=== PATIENT | male | born 1960 | race Hispanic/Latino ===

== ENCOUNTER 2020-06-15 13:58 | Inpatient (IN) | payer BC, SELFPAY ==
[~2020-06-15 13:58] MED LIST: Iopamidol 370 76% 100 ML VIAL ONE; Iopamidol 370 76% 50 ML VIAL FS ONE
[2020-06-15] MEDS ORDERED: Lidocaine 1% (PF) 30 ML VIAL ONE (14:10)
[2020-06-15 14:16] LABS: #Basophils 0.1 thou/uL (0.0-0.2); #Eosinphils 0.1 thou/uL (0.0-0.7); #Lymphocytes 2.6 thou/uL (1.20-3.40); #Monocytes 0.6 thou/uL (0.11-0.59); #Neutrophils 6.4 thou/uL (1.40-6.50); %Eosinophils 1.1 % (0.0-10.0); %Lymphocytes 26.5 % (21.0-51.0); %Monocytes 6.5 % (0.0-10.0); %Neutrophils 64.9 % (42.0-75.0); Hemoglobin 13.8 g/dL (14.0-18.0); Mean Corpuscular HGB CONC 34.7 g/dL (32.0-36.0); Mean Corpuscular Hemoglobin 31.6 pg (27.0-31.0); Mean Platelet Volume 6.9 fL (7.4-10.4); Platelet Count 267 thou/uL (130-400); RBC Distribution Width 12.3 % (11.5-14.5); Red Blood Cell (RBC) Count 4.37 mill/uL (4.70-6.10); White Blood Cell (WBC) Count 9.9 thou/uL (4.8-10.8)
[2020-06-15 14:22] LABS: Prothrombin Time 13.3 sec (12.0-14.7)
[2020-06-15 14:35] LABS: ALT (SGPT) 29 U/L (8-55); AST (SGOT) 20 U/L (5-34); Albumin 4.3 g/dL (3.4-4.8); Alkaline Phosphatase 50 U/L (40-110); Anion Gap 15 mmol/L (10-20); BUN (Urea Nitrogen) 18 mg/dL (8.4-25.7); Bilirubin, Total 0.6 mg/dL (0.2-1.2); Calc. Creatinine Clearance 0 mL/min (70-130); Calcium 8.9 mg/dL (7.8-10.44); Carbon Dioxide 24 mmol/L (23-31); Chloride 106 mmol/L (98-107); Globulin 2.7 g/dL (2.4-3.5); Glucose 154 mg/dL (80-115); Potassium 3.5 mmol/L (3.5-5.1); Sodium 141 mmol/L (136-145)
[2020-06-15] MEDS ORDERED: Fentanyl 100 MCG/2 ML VIAL ONE (14:43)
[2020-06-15] MEDS ORDERED: Heparin 10,000 UNITS/ 10 ML VIAL ONE ×2 (14:43→14:58)
[2020-06-15] MEDS ORDERED: Aggrastat 12.5 MG/250 ML 250 ML ONE (15:06)
[2020-06-15] MEDS ORDERED: Nitroglycerin 100MG/250ML BOT 250 ML ONE (15:06)
[2020-06-15 15:09] LABS: CKMB 3.9 ng/mL (0-6.6)
[2020-06-15] MEDS ORDERED: Norepinephrine 4 MG/4 ML VIAL ONE ×2 (15:11→15:19)
[2020-06-15] MEDS ORDERED: Clopidogrel Bisulfate 300 MG TAB ONE (15:20)
[2020-06-15] MEDS ORDERED: Ondansetron PF 4 MG/2 ML Vial ONE (15:42)
[2020-06-15] MEDS ORDERED: Furosemide 40 MG/4 ML VIAL ONE (16:23)
[2020-06-15 16:40] VITALS: BMI 27.4
[2020-06-15] MEDS ORDERED: Nitroglycerin 50 MG/250 ML BOT 250 ML ONE (16:43)
[2020-06-15] MEDS ORDERED: Nitroglycerin 50 MG/250 ML BOT 250 ML IVPB SCH (16:45)
[2020-06-15] MEDS ORDERED: TICAGRELOR 90 MG TABLET PO SCH (16:45)
[2020-06-15] MEDS ORDERED: Ondansetron PF 4 MG/2 ML Vial IVP SCH (16:45)
[2020-06-15] MEDS ORDERED: Nitroglycerin 2% Ointment 1 INCH/1 GM Packet TOP SCH (16:45)
[2020-06-15] MEDS ORDERED: Furosemide 20 MG/2 ML VIAL SLOW IVP SCH (16:45)
[2020-06-15] MEDS ORDERED: Promethazine HCl 25 MG/ML VIAL SLOW IVP SCH (16:45)
[2020-06-15] MEDS: Sodium Chloride 0.9% 1,000 ML IV SCH (16:52)
[2020-06-15] MEDS ORDERED: Ondansetron PF 4 MG/2 ML Vial IVP PRN (20:38)
[2020-06-15] MEDS ORDERED: Aggrastat 12.5 MG/250 ML 250 ML IVPB SCH (20:45)
[2020-06-15] MEDS ORDERED: Spironolactone 25 MG TAB PO SCH (21:00)
[2020-06-15] MEDS ORDERED: Potassium Chloride 20 MEQ/100 ML PREMIX BAG IVPB SCH (21:00)
[2020-06-15] MEDS ORDERED: Magnesium Sulfate 3 GM in Sodium Chloride 0.9% 100 ML IVPB SCH (21:00)
[2020-06-15] MEDS: Atorvastatin Calcium 40 MG TAB PO SCH (21:04)
[2020-06-15 21:31] LABS: Anion Gap 15 mmol/L (10-20); BUN (Urea Nitrogen) 19 mg/dL (8.4-25.7); Calc. Creatinine Clearance 105 mL/min (70-130); Calcium 8.6 mg/dL (7.8-10.44); Carbon Dioxide 22 mmol/L (23-31); Chloride 106 mmol/L (98-107); Glucose 148 mg/dL (80-115); Sodium 139 mmol/L (136-145)
[2020-06-15 21:43] LABS: CK (CPK) 5684 U/L (30-200)
[2020-06-15 22:38] LABS: CKMB 402.8 ng/mL (0-6.6)
[2020-06-15 23:50] LABS: Band 17 % (5-11); Hemoglobin 13.6 g/dL (14.0-18.0); Lymphocytes 4 % (21-51); MDiff Complete? YES; Mean Corpuscular HGB CONC 34.3 g/dL (32.0-36.0); Mean Corpuscular Hemoglobin 30.8 pg (27.0-31.0); Mean Corpuscular Volume 89.7 fL (78.0-98.0); Mean Platelet Volume 10.6 fL (7.4-10.4); Neutrophil 79 % (42-75); Platelet Count 7 thou/uL (130-400); Platelet Morphology Comment Appears Decreased; RBC Distribution Width 12.4 % (11.5-14.5); Red Blood Cell (RBC) Count 4.41 mill/uL (4.70-6.10); White Blood Cell (WBC) Count 14.3 thou/uL (4.8-10.8)
[2020-06-16] MEDS ORDERED: Potassium Chloride 20 MEQ in Premix Bag 1 BAG IVPB SCH (00:30)
[2020-06-16 05:36] LABS: #Lymphocytes 1.2 thou/uL (1.20-3.40); #Monocytes 0.7 thou/uL (0.11-0.59); #Neutrophils 11.9 thou/uL (1.40-6.50); %Basophils 0.2 % (0.0-1.0); %Eosinophils 0.1 % (0.0-10.0); %Lymphocytes 8.5 % (21.0-51.0); %Monocytes 4.9 % (0.0-10.0); %Neutrophils 86.4 % (42.0-75.0); Hemoglobin 12.5 g/dL (14.0-18.0); Mean Corpuscular Hemoglobin 30.7 pg (27.0-31.0); Mean Corpuscular Volume 90.1 fL (78.0-98.0); Mean Platelet Volume 10.9 fL (7.4-10.4); Platelet Count 11 thou/uL (130-400); RBC Distribution Width 12.6 % (11.5-14.5); Red Blood Cell (RBC) Count 4.09 mill/uL (4.70-6.10); White Blood Cell (WBC) Count 13.8 thou/uL (4.8-10.8)
[2020-06-16 05:50] LABS: ALT (SGPT) 93 U/L (8-55); AST (SGOT) 419 U/L (5-34); Albumin 3.5 g/dL (3.4-4.8); Alkaline Phosphatase 38 U/L (40-110); Anion Gap 12 mmol/L (10-20); BUN (Urea Nitrogen) 19 mg/dL (8.4-25.7); Bilirubin, Total 0.9 mg/dL (0.2-1.2); Calc. Creatinine Clearance 103 mL/min (70-130); Calcium 8.2 mg/dL (7.8-10.44); Carbon Dioxide 21 mmol/L (23-31); Chloride 111 mmol/L (98-107); Globulin 2.5 g/dL (2.4-3.5); Glucose 127 mg/dL (80-115); Potassium 4.6 mmol/L (3.5-5.1); Sodium 139 mmol/L (136-145)
[2020-06-16 06:03] LABS: CK (CPK) 4422 U/L (30-200)
[2020-06-16 06:17] LABS: Critical Call Chem Troponin I RESULT DECREASING
[2020-06-16 06:35] LABS: CKMB 232.4 ng/mL (0-6.6); Critical Call CKMB RESULT DECREASING
[2020-06-16] MEDS: Lisinopril 2.5 MG TAB PO SCH (08:48)
[2020-06-16] MEDS: Aspirin 81 mg Enteric Coated Tablet PO SCH (08:48)
[2020-06-16] MEDS ORDERED: TICAGRELOR 90 MG TABLET PO SCH (09:00)
[2020-06-16] MEDS ORDERED: FLU VACC QS2020-21(6MOS UP)/PF 60 MCG/0.5 ML SYRINGE IM ONE (09:00)
[2020-06-16 11:33] LABS: #Lymphocytes 1.5 thou/uL (1.20-3.40); #Monocytes 0.9 thou/uL (0.11-0.59); #Neutrophils 10.9 thou/uL (1.40-6.50); %Basophils 0.1 % (0.0-1.0); %Eosinophils 0.1 % (0.0-10.0); %Lymphocytes 11.1 % (21.0-51.0); %Monocytes 6.7 % (0.0-10.0); Hemoglobin 12.2 g/dL (14.0-18.0); Mean Corpuscular HGB CONC 33.9 g/dL (32.0-36.0); Mean Corpuscular Hemoglobin 30.9 pg (27.0-31.0); Mean Platelet Volume 11.3 fL (7.4-10.4); Platelet Count 12 thou/uL (130-400); RBC Distribution Width 12.5 % (11.5-14.5); Red Blood Cell (RBC) Count 3.95 mill/uL (4.70-6.10); White Blood Cell (WBC) Count 13.3 thou/uL (4.8-10.8)
[2020-06-16] MEDS: Sodium Chloride 0.9% 1,000 ML IV SCH (16:37)
[2020-06-16 17:38] LABS: #Eosinphils 0.1 thou/uL (0.0-0.7); #Lymphocytes 1.8 thou/uL (1.20-3.40); #Neutrophils 10.4 thou/uL (1.40-6.50); %Basophils 0.2 % (0.0-1.0); %Eosinophils 0.5 % (0.0-10.0); %Lymphocytes 13.5 % (21.0-51.0); %Monocytes 7.7 % (0.0-10.0); %Neutrophils 78.1 % (42.0-75.0); Hemoglobin 12.1 g/dL (14.0-18.0); Mean Corpuscular Hemoglobin 30.8 pg (27.0-31.0); Mean Corpuscular Volume 90.4 fL (78.0-98.0); Platelet Count 16 thou/uL (130-400); RBC Distribution Width 12.4 % (11.5-14.5); Red Blood Cell (RBC) Count 3.92 mill/uL (4.70-6.10); White Blood Cell (WBC) Count 13.3 thou/uL (4.8-10.8)
[2020-06-16] MEDS: Atorvastatin Calcium 40 MG TAB PO SCH (20:57)
[2020-06-17 05:05] LABS: #Basophils 0.1 thou/uL (0.0-0.2); #Eosinphils 0.1 thou/uL (0.0-0.7); %Basophils 0.5 % (0.0-1.0); %Eosinophils 0.4 % (0.0-10.0); %Monocytes 7.8 % (0.0-10.0); %Neutrophils 76.3 % (42.0-75.0); Hemoglobin 11.8 g/dL (14.0-18.0); Mean Corpuscular HGB CONC 33.5 g/dL (32.0-36.0); Mean Corpuscular Hemoglobin 30.1 pg (27.0-31.0); Mean Platelet Volume 10.4 fL (7.4-10.4); Platelet Count 26 thou/uL (130-400); RBC Distribution Width 12.3 % (11.5-14.5); Red Blood Cell (RBC) Count 3.93 mill/uL (4.70-6.10); White Blood Cell (WBC) Count 13.1 thou/uL (4.8-10.8)
[2020-06-17] MEDS: Lisinopril 2.5 MG TAB PO SCH ×2 (08:12→20:54)
[2020-06-17] MEDS: Aspirin 81 mg Enteric Coated Tablet PO SCH ×2 (08:12→12:13)
[2020-06-17] MEDS ORDERED: Furosemide 20 MG/2 ML VIAL SLOW IVP SCH (09:15)
[2020-06-17 17:25] LABS: #Basophils 0.1 thou/uL (0.0-0.2); #Eosinphils 0.1 thou/uL (0.0-0.7); #Lymphocytes 1.8 thou/uL (1.20-3.40); #Neutrophils 10.5 thou/uL (1.40-6.50); %Basophils 0.5 % (0.0-1.0); %Eosinophils 0.4 % (0.0-10.0); %Lymphocytes 13.5 % (21.0-51.0); %Monocytes 7.7 % (0.0-10.0); %Neutrophils 77.9 % (42.0-75.0); Mean Corpuscular HGB CONC 34.8 g/dL (32.0-36.0); Mean Corpuscular Hemoglobin 31.4 pg (27.0-31.0); Mean Corpuscular Volume 90.1 fL (78.0-98.0); Mean Platelet Volume 9.3 fL (7.4-10.4); Platelet Count 43 thou/uL (130-400); RBC Distribution Width 12.2 % (11.5-14.5); Red Blood Cell (RBC) Count 4.13 mill/uL (4.70-6.10); White Blood Cell (WBC) Count 13.5 thou/uL (4.8-10.8)
[2020-06-17] MEDS ORDERED: Clopidogrel Bisulfate 300 MG TAB PO SCH (18:00)
[2020-06-17] MEDS: Sodium Chloride 0.9% 1,000 ML IV SCH (18:09)
[2020-06-17] MEDS: Atorvastatin Calcium 40 MG TAB PO SCH (20:54)
[2020-06-18 03:31] LABS: #Basophils 0.1 thou/uL (0.0-0.2); #Eosinphils 0.1 thou/uL (0.0-0.7); #Monocytes 1.1 thou/uL (0.11-0.59); #Neutrophils 9.1 thou/uL (1.40-6.50); %Basophils 0.8 % (0.0-1.0); %Eosinophils 0.7 % (0.0-10.0); %Lymphocytes 15.8 % (21.0-51.0); %Neutrophils 73.7 % (42.0-75.0); Hemoglobin 12.4 g/dL (14.0-18.0); Mean Corpuscular HGB CONC 33.9 g/dL (32.0-36.0); Mean Corpuscular Hemoglobin 30.6 pg (27.0-31.0); Mean Corpuscular Volume 90.4 fL (78.0-98.0); Mean Platelet Volume 9.3 fL (7.4-10.4); Platelet Count 53 thou/uL (130-400); RBC Distribution Width 12.2 % (11.5-14.5); Red Blood Cell (RBC) Count 4.06 mill/uL (4.70-6.10); White Blood Cell (WBC) Count 12.4 thou/uL (4.8-10.8)
[2020-06-18] MEDS: Aspirin 81 mg Enteric Coated Tablet PO SCH (08:03)
[2020-06-18] MEDS: Clopidogrel Bisulfate 75 MG TAB PO SCH (08:03)
[2020-06-18] MEDS: Lisinopril 2.5 MG TAB PO SCH ×2 (08:04→20:46)
[2020-06-18] MEDS: Sodium Chloride 0.9% 1,000 ML IV SCH (16:22)
[2020-06-18] MEDS: Atorvastatin Calcium 40 MG TAB PO SCH (20:47)
[2020-06-19 04:41] LABS: #Basophils 0.1 thou/uL (0.0-0.2); #Eosinphils 0.2 thou/uL (0.0-0.7); #Lymphocytes 1.9 thou/uL (1.20-3.40); #Monocytes 1.1 thou/uL (0.11-0.59); #Neutrophils 6.3 thou/uL (1.40-6.50); %Basophils 1.1 % (0.0-1.0); %Eosinophils 2.3 % (0.0-10.0); %Lymphocytes 20.2 % (21.0-51.0); %Neutrophils 65.5 % (42.0-75.0); Hemoglobin 11.5 g/dL (14.0-18.0); Mean Corpuscular HGB CONC 33.1 g/dL (32.0-36.0); Mean Corpuscular Hemoglobin 29.9 pg (27.0-31.0); Mean Corpuscular Volume 90.2 fL (78.0-98.0); Mean Platelet Volume 8.5 fL (7.4-10.4); Platelet Count 103 thou/uL (130-400); RBC Distribution Width 12.3 % (11.5-14.5); Red Blood Cell (RBC) Count 3.86 mill/uL (4.70-6.10); White Blood Cell (WBC) Count 9.6 thou/uL (4.8-10.8)
[2020-06-19 05:02] LABS: Anion Gap 13 mmol/L (10-20); BUN (Urea Nitrogen) 18 mg/dL (8.4-25.7); Calc. Creatinine Clearance 122 mL/min (70-130); Calcium 8.4 mg/dL (7.8-10.44); Carbon Dioxide 20 mmol/L (23-31); Cardiac Risk 3.8 (Less than 4.5); Chloride 105 mmol/L (98-107); Cholesterol 149 mg/dl (< 200 Desired); Glucose 107 mg/dL (80-115); HDL Cholesterol 39 mg/dL (>60 Neg Risk); LDL Cholesterol, Calculated 89 mg/dL; Potassium 3.8 mmol/L (3.5-5.1); Sodium 134 mmol/L (136-145); Triglycerides 103 mg/dL (Less than 150)
[2020-06-19] MEDS: Lisinopril 2.5 MG TAB PO SCH ×2 (08:37→20:41)
[2020-06-19] MEDS: Aspirin 81 mg Enteric Coated Tablet PO SCH (08:37)
[2020-06-19] MEDS: Clopidogrel Bisulfate 75 MG TAB PO SCH (08:38)
[2020-06-19] MEDS: Sodium Chloride 0.9% 1,000 ML IV SCH (10:03)
[2020-06-19] MEDS ORDERED: Acetaminophen 325 MG TAB PO PRN (11:45)
[2020-06-19] MEDS: Acetaminophen 325 MG TAB PO PRN (20:41)
[2020-06-19] MEDS: Atorvastatin Calcium 40 MG TAB PO SCH (20:41)
[2020-06-20 04:33] LABS: #Basophils 0.1 thou/uL (0.0-0.2); #Eosinphils 0.3 thou/uL (0.0-0.7); #Lymphocytes 1.9 thou/uL (1.20-3.40); #Monocytes 0.8 thou/uL (0.11-0.59); #Neutrophils 4.6 thou/uL (1.40-6.50); %Basophils 0.8 % (0.0-1.0); %Eosinophils 4.3 % (0.0-10.0); %Lymphocytes 24.5 % (21.0-51.0); %Monocytes 10.1 % (0.0-10.0); %Neutrophils 60.3 % (42.0-75.0); Hemoglobin 11.3 g/dL (14.0-18.0); Mean Corpuscular Hemoglobin 27.1 pg (27.0-31.0); Mean Corpuscular Volume 90.1 fL (78.0-98.0); Platelet Count 177 thou/uL (130-400); RBC Distribution Width 12.3 % (11.5-14.5); Red Blood Cell (RBC) Count 4.16 mill/uL (4.70-6.10); White Blood Cell (WBC) Count 7.6 thou/uL (4.8-10.8)
[2020-06-20] MEDS: Aspirin 81 mg Enteric Coated Tablet PO SCH (08:39)
[2020-06-20] MEDS: Lisinopril 2.5 MG TAB PO SCH (08:39)
[2020-06-20] MEDS: Clopidogrel Bisulfate 75 MG TAB PO SCH (08:40)
[2020-06-20] MEDS: Atorvastatin Calcium 40 MG TAB PO SCH (21:12)
[2020-06-20] MEDS: Metoprolol Tartrate 25 MG TAB PO SCH (21:12)
[2020-06-21] MEDS: Aspirin 81 mg Enteric Coated Tablet PO SCH (08:24)
[2020-06-21] MEDS: Clopidogrel Bisulfate 75 MG TAB PO SCH (08:24)
[2020-06-21] MEDS: Metoprolol Tartrate 25 MG TAB PO SCH ×2 (08:24→20:58)
[2020-06-21] MEDS: Lisinopril 2.5 MG TAB PO SCH (09:51)
[2020-06-21] MEDS: Acetaminophen 325 MG TAB PO PRN ×2 (09:57→20:56)
[2020-06-21 10:07] LABS: Bacteria/HPF None Seen HPF (None Seen); Bilirubin Negative (Negative); Blood, Urine Negative (Negative); Clarity Clear (Clear); Glucose, Urine (Dipstick) Normal (Negative); Ketone, Urine Negative (Negative); Leukocyte Negative Leu/uL (Negative); Nitrite Negative (Negative); Protein, Urine (Dipstick) Negative (Neg-Trace); RBC/HPF 0-3 HPF (0-3); Specific Gravity, Urine 1.021 (1.002-1.036); Squamous Epithelial None Seen HPF (0-3); Urobilinogen 3 mg/dL (Less than 2); WBC/HPF 0-3 HPF (0-3)
[2020-06-21] MEDS ORDERED: Sodium Chloride 0.9% 1,000 ML IV SCH (16:15)
[2020-06-21] MEDS: Atorvastatin Calcium 40 MG TAB PO SCH (20:56)
[2020-06-22 04:27] LABS: #Basophils 0.1 thou/uL (0.0-0.2); #Eosinphils 0.1 thou/uL (0.0-0.7); #Lymphocytes 1.5 thou/uL (1.20-3.40); #Monocytes 0.7 thou/uL (0.11-0.59); #Neutrophils 3.5 thou/uL (1.40-6.50); %Basophils 1.5 % (0.0-1.0); %Eosinophils 1.7 % (0.0-10.0); %Lymphocytes 25.6 % (21.0-51.0); %Monocytes 11.3 % (0.0-10.0); %Neutrophils 59.9 % (42.0-75.0); Hemoglobin 12.4 g/dL (14.0-18.0); Mean Corpuscular HGB CONC 34.3 g/dL (32.0-36.0); Mean Corpuscular Hemoglobin 30.9 pg (27.0-31.0); Mean Corpuscular Volume 90.2 fL (78.0-98.0); Mean Platelet Volume 6.9 fL (7.4-10.4); Platelet Count 275 thou/uL (130-400); Red Blood Cell (RBC) Count 4.02 mill/uL (4.70-6.10); White Blood Cell (WBC) Count 5.9 thou/uL (4.8-10.8)
[2020-06-22] MEDS: Aspirin 81 mg Enteric Coated Tablet PO SCH (08:40)
[2020-06-22] MEDS: Clopidogrel Bisulfate 75 MG TAB PO SCH (08:40)
[2020-06-22] MEDS: Lisinopril 2.5 MG TAB PO SCH (08:41)
[2020-06-22] MEDS: Metoprolol Tartrate 25 MG TAB PO SCH ×2 (08:41→20:44)
[2020-06-22] MEDS: Atorvastatin Calcium 40 MG TAB PO SCH (20:44)
[2020-06-22] MEDS ORDERED: VANCOMYCIN 1.25 GM/250 ML BAG 1.25 GM in Premix Bag 1 BAG IVPB SCH (21:00)
[2020-06-23 04:28] LABS: ALT (SGPT) 38 U/L (8-55); AST (SGOT) 29 U/L (5-34); Albumin 3.6 g/dL (3.4-4.8); Alkaline Phosphatase 51 U/L (40-110); Anion Gap 12 mmol/L (10-20); BUN (Urea Nitrogen) 20 mg/dL (8.4-25.7); Bilirubin, Total 1.1 mg/dL (0.2-1.2); Calc. Creatinine Clearance 101 mL/min (70-130); Carbon Dioxide 23 mmol/L (23-31); Chloride 104 mmol/L (98-107); Globulin 3.2 g/dL (2.4-3.5); Glucose 110 mg/dL (80-115); Potassium 4.3 mmol/L (3.5-5.1); Protein, Total 6.8 g/dL (5.8-8.1); Sodium 135 mmol/L (136-145)
[2020-06-23] MEDS: Aspirin 81 mg Enteric Coated Tablet PO SCH (09:31)
[2020-06-23] MEDS: Clopidogrel Bisulfate 75 MG TAB PO SCH (09:32)
[2020-06-23] MEDS: Lisinopril 2.5 MG TAB PO SCH (09:32)
[2020-06-23] MEDS: Metoprolol Tartrate 25 MG TAB PO SCH (09:35)
[2020-06-23] MEDS: Atorvastatin Calcium 40 MG TAB PO SCH (20:18)
[2020-06-24] MEDS: Clopidogrel Bisulfate 75 MG TAB PO SCH (09:45)
[2020-06-24] MEDS: Aspirin 81 mg Enteric Coated Tablet PO SCH (09:46)
[2020-06-24] MEDS: Lisinopril 2.5 MG TAB PO SCH (09:46)
[2020-06-24 12:00] VITALS: BP 100/59; TEMP 97.9
== END 2020-06-24 14:36 | disposition home or self-care (01) | DRG 246 ==
LOC: ERS 13:58 → CCU 14:20 → 2NO 06-18 10:01
PROVIDERS: ADMIT Internal Medicine Cardiovascular Disease; ATTEND Internal Medicine Cardiovascular Disease
PROC: 027034Z Dilation of Coronary Artery, One Artery with Drug-eluting Intraluminal Device, Percutaneous Approach (ICD-10-PCS; principal; 2020-06-15)
PROC: 02C03ZZ Extirpation of Matter from Coronary Artery, One Artery, Percutaneous Approach (ICD-10-PCS; 2020-06-15)
PROC: 4A023N7 Measurement of Cardiac Sampling and Pressure, Left Heart, Percutaneous Approach (ICD-10-PCS; 2020-06-15)
PROC: B2111ZZ Fluoroscopy of Multiple Coronary Arteries using Low Osmolar Contrast (ICD-10-PCS; 2020-06-15)
PROC: B2151ZZ Fluoroscopy of Left Heart using Low Osmolar Contrast (ICD-10-PCS; 2020-06-15)
PROC: 4A033BC Measurement of Arterial Pressure, Coronary, Percutaneous Approach (ICD-10-PCS; 2020-06-15)
PROC: 3E03317 Introduction of Other Thrombolytic into Peripheral Vein, Percutaneous Approach (ICD-10-PCS; 2020-06-15)
PROC: 3E033XZ Introduction of Vasopressor into Peripheral Vein, Percutaneous Approach (ICD-10-PCS; 2020-06-15)
DX: I21.09 ST elevation (STEMI) myocardial infarction involving other coronary artery of anterior wall (principal); I50.21 Acute systolic (congestive) heart failure; I95.9 Hypotension, unspecified; D69.59 Other secondary thrombocytopenia; T45.8X5A Adverse effect of other primarily systemic and hematological agents, initial encounter; R50.9 Fever, unspecified; E78.00 Pure hypercholesterolemia, unspecified; Z87.891 Personal history of nicotine dependence
CPT/HCPCS: 36415; 71045; 76942; 80048; 80053; 80061; 81001; 82550; 82553; 83880; 84484; 85025; 85347; 85610; 85730; 87040; 87086; 87149; 92941; 92977; 93005; 93010; 93306; 93458; 93798; 96374; C1874; C9606; J1644; J1940; J1956; J2001; J2405; J2550; J3010; J3246; J3475; J3480; J3490; Q9967